=== PATIENT | male | born 1965 | race Caucasian/White ===

== ENCOUNTER 2017-01-27 15:51 | Emergency (ER) | payer BC ==
[~2017-01-27] VITALS: Ht 185.4 cm; Wt 99.0 kg
[2017-01-27 15:54] VITALS: BP 118/77
[2017-01-27] MEDS ORDERED: SIMV10TA6 PO (15:58)
== END 2017-01-27 20:25 | disposition left against medical advice (07) ==
LOC: ER 16:49
DX: R52 Pain, unspecified (principal); R11.0 Nausea; Z53.21 Procedure and treatment not carried out due to patient leaving prior to being seen by health care provider